=== PATIENT | female | born 1970 | race Caucasian/White ===

== ENCOUNTER → 2017-01-03 | Outpatient (CLI) | payer BC ==
[~2017-01-03] MED LIST: AMITIZA8 MICROGRA PO; CELEBREX200 MG PO; CELEXA10 MG PO; LASIX10 MG PO; MOTRIN800 MG; PERCOCET 10/1 TABLET PO; PERCOCET 5-3251 EACH PO; RITALIN20 MG PO; SINGULAIR10 MG PO; TOPAMAX200 MG PO; VALIUM5 MG PO; VICODIN ES 71 TABLET PO; [UNRECOGNIZED DRUG - OTHER] PO
== END | disposition home or self-care (01) ==
LOC: RES 09:24
DX: J45.909 Unspecified asthma, uncomplicated (principal)
CPT/HCPCS: 94060; 94726; 94729

== ENCOUNTER 2017-04-01 22:21 | Emergency (ER) | payer OTHER, BC | END 2017-04-01 23:06 | disposition left against medical advice (07) | LOC: EME 22:21 | DX: S89.92XA Unspecified injury of left lower leg, initial encounter (principal); Z53.21 Procedure and treatment not carried out due to patient leaving prior to being seen by health care provider ==

== ENCOUNTER 2017-06-25 11:16 | Emergency (ER) | payer BC ==
[~2017-06-25] VITALS: Ht 172.7 cm; Wt 109.0 kg
[2017-06-25 12:08] LABS: HEMATOCRIT 40.8 % (36.0-46.0); MCH 32.1 PG (29.0-34.0); MCHC 33.3 G/DL (30.0-36.0); MCV 96.2 FL (83-99); MEAN PLAT.VOLUME 9.3 uM^3 (9.5-12.4); PLATELET COUNT 270 K/uL (156-360); RBC DIS.WIDTH-CV 13.2 % (11.8-14.6); RBC DIS.WIDTH-SD 46.7 % (39-53); RED BLOOD COUNT 4.24 M/uL (3.80-5.20); WHITE BLOOD COUNT 7.3 K/uL (4.1-10.2)
[2017-06-25 12:22] LABS: CHLORIDE 110 mEq/L (99-109); POTASSIUM 3.9 mEq/L (3.7-5.4); SODIUM 140 mEq/L (136-147)
[2017-06-25 12:24] LABS: GLUCOSE 101 mg/dL (70-99)
[2017-06-25 12:26] LABS: ANION GAP 7 MEQ/L (2-14)
[2017-06-25 12:28] LABS: GFR ESTIMATE (CALCULATED) > 59 mL/min/; TROP-I INTERPRETATION NEGATIVE; TROPONIN-I < 0.01 ng/mL (0.0-0.30)
[2017-06-25 12:29] LABS: UREA NITROGEN (BUN) 13 mg/dL (9-23)
[2017-06-25 15:15] LABS: TROP-I INTERPRETATION NEGATIVE; TROPONIN-I < 0.01 ng/mL (0.0-0.30)
[2017-06-25 16:00] VITALS: BP 102/73
== END 2017-06-25 16:01 | disposition home or self-care (01) ==
LOC: EME 11:16
PROVIDERS: Emergency Medicine; Nurse Practitioner Family
DX: R07.89 Other chest pain (principal); R06.02 Shortness of breath; G43.909 Migraine, unspecified, not intractable, without status migrainosus; F17.200 Nicotine dependence, unspecified, uncomplicated
CPT/HCPCS: 71020; 80048; 83880; 84484; 85027; 93005; 94640; 99281; 99284; J7030

== ENCOUNTER 2017-07-14 10:20 | Emergency (ER) | payer BC ==
[~2017-07-14] VITALS: Ht 172.7 cm; Wt 105.1 kg
[2017-07-14] MEDS ORDERED: FLEXERIL10 MG PO (12:06)
[2017-07-14] MEDS ORDERED: PERCOCET 5/31 TABLET PO (12:06)
[2017-07-14 12:22] VITALS: BP 128/84
== END 2017-07-14 12:23 | disposition home or self-care (01) ==
LOC: EME 10:20
DX: S20.219A Contusion of unspecified front wall of thorax, initial encounter (principal); S40.012A Contusion of left shoulder, initial encounter; R51 Headache; M54.2 Cervicalgia; R42 Dizziness and giddiness; V49.40XA Driver injured in collision with unspecified motor vehicles in traffic accident, initial encounter; Y92.410 Unspecified street and highway as the place of occurrence of the external cause; F17.200 Nicotine dependence, unspecified, uncomplicated
CPT/HCPCS: 71020; 73030; 99281; 99283

== ENCOUNTER 2017-11-06 21:16 | Emergency (ER) | payer BC ==
[~2017-11-06] VITALS: Ht 172.7 cm; Wt 106.6 kg
[~2017-11-06 21:16] MED LIST changes: +FLEXERIL10 MG PO; +PERCOCET 5/31 TABLET PO
[2017-11-07] MEDS ORDERED: PERCOCET 5/31 TABLET PO (00:58)
[2017-11-07] MEDS ORDERED: MEDROL DOSEPAK4 MG PO (00:58)
[2017-11-07] MEDS ORDERED: FLEXERIL10 MG PO (00:58)
[2017-11-07 01:10] VITALS: BP 119/84
== END 2017-11-07 01:10 | disposition home or self-care (01) ==
LOC: EME 21:16
DX: S29.012A Strain of muscle and tendon of back wall of thorax, initial encounter (principal); W01.0XXA Fall on same level from slipping, tripping and stumbling without subsequent striking against object, initial encounter; Y92.009 Unspecified place in unspecified non-institutional (private) residence as the place of occurrence of the external cause; F90.9 Attention-deficit hyperactivity disorder, unspecified type; G89.29 Other chronic pain; M54.5 Low back pain; G43.909 Migraine, unspecified, not intractable, without status migrainosus; F17.200 Nicotine dependence, unspecified, uncomplicated; Z88.8 Allergy status to other drugs, medicaments and biological substances
CPT/HCPCS: 72070; 99281; 99284; J1885; J7512

== ENCOUNTER 2017-11-19 21:10 | Emergency (ER) | payer BC ==
[~2017-11-19] VITALS: Ht 172.7 cm; Wt 105.8 kg
[~2017-11-19 21:10] MED LIST changes: +MEDROL DOSEPAK4 MG PO
[2017-11-19 22:05] LABS: HEMOGLOBIN 13.8 G/DL (11.9-15.5); MCH 32.9 PG (29.0-34.0); MCHC 33.7 G/DL (30.0-36.0); MCV 97.9 FL (83-99); PLATELET COUNT 291 K/uL (156-360); RBC DIS.WIDTH-CV 12.9 % (11.8-14.6); RBC DIS.WIDTH-SD 46.3 % (39-53); RED BLOOD COUNT 4.19 M/uL (3.80-5.20)
[2017-11-19 22:11] LABS: CHLORIDE 108 mEq/L (99-109); POTASSIUM 4.1 mEq/L (3.7-5.4); SODIUM 142 mEq/L (136-147)
[2017-11-19 22:13] LABS: GLUCOSE 101 mg/dL (70-99)
[2017-11-19 22:17] LABS: CREATININE 0.9 mg/dL (0.6-1.3); GFR ESTIMATE (CALCULATED) > 59 mL/min/
[2017-11-19 22:18] LABS: UREA NITROGEN (BUN) 15 mg/dL (9-23)
[2017-11-19 22:24] LABS: TROP-I INTERPRETATION NEGATIVE; TROPONIN-I < 0.01 ng/mL (0.0-0.30)
[2017-11-20 00:19] LABS: TROP-I INTERPRETATION NEGATIVE; TROPONIN-I < 0.01 ng/mL (0.0-0.30)
[2017-11-20 01:23] VITALS: BP 119/79
== END 2017-11-20 01:32 | disposition home or self-care (01) ==
LOC: EME 21:10
PROVIDERS: Emergency Medicine
DX: R07.9 Chest pain, unspecified (principal); Z82.49 Family history of ischemic heart disease and other diseases of the circulatory system; F17.200 Nicotine dependence, unspecified, uncomplicated
CPT/HCPCS: 71046; 71275; 80048; 84484; 85027; 93005; 99281; 99285; J7040

== ENCOUNTER 2018-02-08 20:44 | Emergency (ER) | payer BC ==
[~2018-02-08] VITALS: Ht 172.7 cm; Wt 108.7 kg
[2018-02-08] MEDS ORDERED: PERCOCET 5/31 TABLET PO (23:59)
[2018-02-08] MEDS ORDERED: ROBAXIN750 MG PO (23:59)
[2018-02-09 00:07] VITALS: BP 118/65
== END 2018-02-09 00:18 | disposition home or self-care (01) ==
LOC: EME 20:44
DX: S09.8XXA Other specified injuries of head, initial encounter (principal); S20.211A Contusion of right front wall of thorax, initial encounter; S00.81XA Abrasion of other part of head, initial encounter; W19.XXXA Unspecified fall, initial encounter; Y93.67 Activity, basketball; F17.200 Nicotine dependence, unspecified, uncomplicated
CPT/HCPCS: 70450; 71101; 99281; 99284